=== PATIENT | male | born 1965 | race Caucasian/White ===

== ENCOUNTER 2016-09-21 15:32 | Inpatient (IN) | payer OTHER ==
[~2016-09-21] VITALS: Ht 182.9 cm; Wt 115.0 kg
[2016-09-21 16:33] LABS: BASOPHIL COUNT 0.1 K/uL (0-0.1); EOSINOPHIL (%) 0.7 % (0-5); EOSINOPHIL COUNT 0.1 K/uL (0-0.3); HEMATOCRIT 49.9 % (38.0-50.0); IMMATURE GRANULOCYTE (%) 0.3 % (0.0-0.7); IMMATURE GRANULOCYTE COUNT 0.4 K/uL; LYMPHOCYTE COUNT 1.3 K/uL (1.0-2.8); MCH 29.5 PG (29.0-34.0); MCHC 32.5 G/DL (30.0-36.0); MCV 90.9 FL (86-99); MEAN PLAT.VOLUME 9.8 uM^3 (9.0-12.4); MONOCYTE (%) 9.4 % (3-12); MONOCYTE COUNT 1.1 K/uL (0-0.8); NEUTROPHIL (%) 78.5 % (45-76); NEUTROPHIL COUNT 9.2 K/uL (1.8-6.4); PLATELET COUNT 215 K/uL (156-360); RBC DIS.WIDTH-CV 14.8 % (11.8-14.6); RBC DIS.WIDTH-SD 48.2 % (39-53); RED BLOOD COUNT 5.49 M/uL (4.00-5.50); WHITE BLOOD COUNT 11.7 K/uL (4.1-10.2)
[2016-09-21 16:41] LABS: CHLORIDE 104 mEq/L (99-109); POTASSIUM 4.2 mEq/L (3.7-5.4); SODIUM 143 mEq/L (136-147)
[2016-09-21 16:44] LABS: GLUCOSE 122 mg/dL (70-99)
[2016-09-21 16:45] LABS: ANION GAP 10 MEQ/L (2-14); TOTAL BILIRUBIN 1.2 mg/dL (0.0-1.0)
[2016-09-21 16:47] LABS: ALKALINE PHOSPHATASE 88 IU/L (3-129); GFR ESTIMATE (CALCULATED) > 59 mL/min/
[2016-09-21 16:48] LABS: UREA NITROGEN (BUN) 11 mg/dL (9-23)
[2016-09-21 20:37] LABS: BASE EXCESS -0.1 mEq/L (-3 to +3); BICARBONATE 32.9 mEq/L (22-26); CARBOXY HGB 4.4 % (0-5); METHEMOGLOBIN 1.3 % (0-1.5); PCO2 99 mm Hg (35-45); PO2 122 mm Hg (80-100)
[2016-09-21 20:39] LABS: SITE LR
[2016-09-21 20:40] LABS: COMMENTS - BLOOD GASES A+C+; DEVICE 840
[2016-09-21 20:41] LABS: FI02 100 %; MECHANICAL RATE 14 resp/min; MODE SIMV; PEEP 5 CM/H20; PRES. SUPPORT 10 CM/H2O; TIDAL VOLUME 470 ML; TOTAL RESP RATE 14 resp/min; pH 7.13 (7.35-7.45)
[2016-09-21 22:00] VITALS: BP 68/39
[2016-09-21 22:15] VITALS: BP 106/71
[2016-09-21 22:30] VITALS: BP 105/71
[2016-09-21 23:00] VITALS: BP 95/61
[2016-09-21 23:04] LABS: METH RESISTANT S AUREUS PCR NEGATIVE (NEGATIVE)
[2016-09-21 23:08] LABS: PROBE CHECK PASS; SPECIMEN PROCESSING CONTROL PASS
[2016-09-21 23:16] LABS: BASE EXCESS 4.5 mEq/L (-3 to +3); BICARBONATE 33.7 mEq/L (22-26); CARBOXY HGB 3.9 % (0-5); METHEMOGLOBIN 1.6 % (0-1.5)
[2016-09-21 23:17] LABS: COMMENTS - BLOOD GASES C+; DEVICE VENT; FI02 60 %; MECHANICAL RATE 20 resp/min; MODE AC; PCO2 70 mm Hg (35-45); PEEP 5 CM/H20; PO2 50 mm Hg (80-100); SITE RR; TIDAL VOLUME 500 ML; TOTAL RESP RATE 20 resp/min; pH 7.29 (7.35-7.45)
[2016-09-22] VITALS (25 sets, daily range): BP systolic 88–171; BP diastolic 56–110
[2016-09-22 06:38] LABS: ANION GAP 7 MEQ/L (2-14); CHLORIDE 103 MEQ/L (99-109); GFR ESTIMATE (CALCULATED) > 59 mL/min/; POTASSIUM 4.1 MEQ/L (3.7-5.4); SAMPLE HEMOLYSIS CHECK 0; SAMPLE ICTERIC CHECK 0; SAMPLE LIPEMIA CHECK 0; SODIUM 141 MEQ/L (136-147); UREA NITROGEN (BUN) 12 mg/dL (9-23)
[2016-09-22 06:40] LABS: GLUCOSE 81 mg/dL (70-99)
[2016-09-22 06:46] LABS: HEMATOCRIT 45.2 % (38.0-50.0); MCH 28.2 PG (29.0-34.0); MCHC 30.3 G/DL (30.0-36.0); MCV 93.2 FL (86-99); MEAN PLAT.VOLUME 10.3 uM^3 (9.0-12.4); PLATELET COUNT 198 K/uL (156-360); RBC DIS.WIDTH-CV 14.8 % (11.8-14.6); RBC DIS.WIDTH-SD 49.8 % (39-53); RED BLOOD COUNT 4.85 M/uL (4.00-5.50); WHITE BLOOD COUNT 9.8 K/uL (4.1-10.2)
[2016-09-22 12:57] LABS: AMPHETAMINES QUANT VALUE 0 NG/ML; BARBITUATES QUANT VALUE 0 NG/ML; BENZODIAZEPINES QUANT VALUE 0 NG/ML; BENZODIAZEPINES, URINE SCREEN Negative (200 ng/mL); MARIJUANA QUANT VALUE 0 NG/ML; PHENCYCLIDINE QUANT VALUE 0 NG/ML
[2016-09-22 18:48] LABS: BASE EXCESS 5.9 mEq/L (-3 to +3); BICARBONATE 37.7 mEq/L (22-26); CARBOXY HGB 2.8 % (0-5); METHEMOGLOBIN 1.5 % (0-1.5)
[2016-09-22 18:49] LABS: COMMENTS - BLOOD GASES C+; DEVICE HFNC; O2 FLOW 15 L/MIN; PCO2 92 mm Hg (35-45); PO2 69 mm Hg (80-100); SITE RR; TOTAL RESP RATE 16 resp/min; pH 7.22 (7.35-7.45)
[2016-09-23] VITALS (17 sets, daily range): BP systolic 110–142; BP diastolic 65–94
[2016-09-23 08:33] LABS: MAGNESIUM 1.6 mg/dl (1.3-2.7)
[2016-09-24] VITALS: BP 120/85
[2016-09-24 04:00] VITALS: BP 118/81
[2016-09-24 07:51] LABS: EOSINOPHIL (%) 0 % (0-5); HEMATOCRIT 46.3 % (38.0-50.0); IMMATURE GRANULOCYTE (%) 0.3 % (0.0-0.7); IMMATURE GRANULOCYTE COUNT 0.1 K/uL; LYMPHOCYTE COUNT 1.7 K/uL (1.0-2.8); MCH 28.4 PG (29.0-34.0); MCHC 29.6 G/DL (30.0-36.0); MCV 95.9 FL (86-99); MEAN PLAT.VOLUME 10.4 uM^3 (9.0-12.4); MONOCYTE COUNT 1.1 K/uL (0-0.8); NEUTROPHIL (%) 81.5 % (45-76); NEUTROPHIL COUNT 12.3 K/uL (1.8-6.4); PLATELET COUNT 221 K/uL (156-360); RBC DIS.WIDTH-CV 14.6 % (11.8-14.6); RBC DIS.WIDTH-SD 51.4 % (39-53); RED BLOOD COUNT 4.83 M/uL (4.00-5.50); WHITE BLOOD COUNT 15.1 K/uL (4.1-10.2)
[2016-09-24 08:00] VITALS: BP 141/86
[2016-09-24 08:13] LABS: ANION GAP 5 MEQ/L (2-14); CHLORIDE 96 MEQ/L (99-109); GFR ESTIMATE (CALCULATED) > 59 mL/min/; GLUCOSE 98 mg/dL (70-99); MAGNESIUM 1.9 mg/dl (1.3-2.7); POTASSIUM 5.6 MEQ/L (3.7-5.4); SAMPLE HEMOLYSIS CHECK 0; SAMPLE ICTERIC CHECK 0; SAMPLE LIPEMIA CHECK 0; SODIUM 139 MEQ/L (136-147); UREA NITROGEN (BUN) 18 mg/dL (9-23)
[2016-09-24 12:00] VITALS: BP 122/77
[2016-09-24 16:00] VITALS: BP 128/93
[2016-09-24 22:00] VITALS: BP 138/66
[2016-09-25] VITALS (9 sets, daily range): BP systolic 137–167; BP diastolic 78–95
[2016-09-25 06:35] LABS: EOSINOPHIL (%) 0 % (0-5); HEMATOCRIT 45.2 % (38.0-50.0); IMMATURE GRANULOCYTE (%) 0.2 % (0.0-0.7); LYMPHOCYTE COUNT 0.3 K/uL (1.0-2.8); MCH 29.7 PG (29.0-34.0); MCHC 30.3 G/DL (30.0-36.0); MEAN PLAT.VOLUME 10.3 uM^3 (9.0-12.4); MONOCYTE (%) 3.1 % (3-12); MONOCYTE COUNT 0.3 K/uL (0-0.8); NEUTROPHIL (%) 93.6 % (45-76); NEUTROPHIL COUNT 8.7 K/uL (1.8-6.4); PLATELET COUNT 220 K/uL (156-360); RBC DIS.WIDTH-CV 14.7 % (11.8-14.6); RBC DIS.WIDTH-SD 52.7 % (39-53); RED BLOOD COUNT 4.61 M/uL (4.00-5.50)
[2016-09-25 06:36] LABS: WHITE BLOOD COUNT 9.3 K/uL (4.1-10.2)
[2016-09-25 06:53] LABS: ANION GAP ND MEQ/L (2-14); CHLORIDE 95 MEQ/L (99-109); GFR ESTIMATE (CALCULATED) > 59 mL/min/; MAGNESIUM 1.8 mg/dl (1.3-2.7); POTASSIUM 4.9 MEQ/L (3.7-5.4); SAMPLE HEMOLYSIS CHECK 0; SAMPLE ICTERIC CHECK 0; SAMPLE LIPEMIA CHECK 0; SODIUM 141 MEQ/L (136-147); UREA NITROGEN (BUN) 16 mg/dL (9-23)
[2016-09-25 06:54] LABS: CARBON DIOXIDE (BICARBONATE) > 40.0 MEQ/L (20-31); GLUCOSE 160 mg/dL (70-99)
[2016-09-26] VITALS: BP 140/104
[2016-09-26 04:00] VITALS: BP 136/92
[2016-09-26 06:10] LABS: EOSINOPHIL (%) 0 % (0-5); HEMATOCRIT 46.4 % (38.0-50.0); IMMATURE GRANULOCYTE (%) 0.2 % (0.0-0.7); LYMPHOCYTE COUNT 0.4 K/uL (1.0-2.8); MCH 28.1 PG (29.0-34.0); MCHC 29.1 G/DL (30.0-36.0); MCV 96.7 FL (86-99); MEAN PLAT.VOLUME 10.1 uM^3 (9.0-12.4); MONOCYTE COUNT 0.4 K/uL (0-0.8); NEUTROPHIL (%) 91.8 % (45-76); NEUTROPHIL COUNT 8.4 K/uL (1.8-6.4); PLATELET COUNT 245 K/uL (156-360); RBC DIS.WIDTH-CV 14.5 % (11.8-14.6); RBC DIS.WIDTH-SD 51.3 % (39-53); WHITE BLOOD COUNT 9.2 K/uL (4.1-10.2)
[2016-09-26 07:09] LABS: ANION GAP ND MEQ/L (2-14); CHLORIDE 94 MEQ/L (99-109); GFR ESTIMATE (CALCULATED) > 59 mL/min/; GLUCOSE 161 mg/dL (70-99); MAGNESIUM 1.9 mg/dl (1.3-2.7); POTASSIUM 4.7 MEQ/L (3.7-5.4); SAMPLE HEMOLYSIS CHECK 0; SAMPLE ICTERIC CHECK 0; SAMPLE LIPEMIA CHECK 0; SODIUM 142 MEQ/L (136-147); UREA NITROGEN (BUN) 18 mg/dL (9-23)
[2016-09-26 07:13] LABS: CARBON DIOXIDE (BICARBONATE) > 40.0 MEQ/L (20-31)
[2016-09-26 08:00] VITALS: BP 157/104
[2016-09-26 12:00] VITALS: BP 163/102
[2016-09-26 16:00] VITALS: BP 142/103
[2016-09-26 20:00] VITALS: BP 148/86
[2016-09-27] VITALS (7 sets, daily range): BP systolic 128–181; BP diastolic 92–115
[2016-09-27 06:14] LABS: EOSINOPHIL (%) 0 % (0-5); HEMATOCRIT 45.4 % (38.0-50.0); IMMATURE GRANULOCYTE (%) 0.1 % (0.0-0.7); LYMPHOCYTE COUNT 0.4 K/uL (1.0-2.8); MCH 28.7 PG (29.0-34.0); MCHC 30.2 G/DL (30.0-36.0); MEAN PLAT.VOLUME 10.4 uM^3 (9.0-12.4); MONOCYTE (%) 5.3 % (3-12); MONOCYTE COUNT 0.4 K/uL (0-0.8); NEUTROPHIL (%) 89.7 % (45-76); NEUTROPHIL COUNT 7.1 K/uL (1.8-6.4); PLATELET COUNT 271 K/uL (156-360); RBC DIS.WIDTH-CV 14.4 % (11.8-14.6); RBC DIS.WIDTH-SD 50.1 % (39-53); RED BLOOD COUNT 4.78 M/uL (4.00-5.50)
[2016-09-27 06:47] LABS: ANION GAP ND MEQ/L (2-14); CHLORIDE 93 MEQ/L (99-109); GFR ESTIMATE (CALCULATED) > 59 mL/min/; GLUCOSE 117 mg/dL (70-99); MAGNESIUM 1.9 mg/dl (1.3-2.7); POTASSIUM 4.4 MEQ/L (3.7-5.4); SAMPLE HEMOLYSIS CHECK 0; SAMPLE ICTERIC CHECK 0; SAMPLE LIPEMIA CHECK 0; SODIUM 142 MEQ/L (136-147); UREA NITROGEN (BUN) 17 mg/dL (9-23)
[2016-09-27 06:48] LABS: CARBON DIOXIDE (BICARBONATE) > 40.0 MEQ/L (20-31)
[2016-09-28 04:10] VITALS: BP 148/94
[2016-09-28 07:20] VITALS: BP 138/88
[2016-09-28 07:35] LABS: ANION GAP ND MEQ/L (2-14); CHLORIDE 95 MEQ/L (99-109); GFR ESTIMATE (CALCULATED) > 59 mL/min/; GLUCOSE 92 mg/dL (70-99); POTASSIUM 4.8 MEQ/L (3.7-5.4); SAMPLE HEMOLYSIS CHECK 0; SAMPLE ICTERIC CHECK 0; SAMPLE LIPEMIA CHECK 0; SODIUM 143 MEQ/L (136-147); UREA NITROGEN (BUN) 18 mg/dL (9-23)
[2016-09-28 07:36] LABS: CARBON DIOXIDE (BICARBONATE) > 40.0 MEQ/L (20-31)
[2016-09-28 07:56] LABS: EOSINOPHIL (%) 0.1 % (0-5); IMMATURE GRANULOCYTE (%) 0.3 % (0.0-0.7); LYMPHOCYTE COUNT 1.7 K/uL (1.0-2.8); MCH 28.7 PG (29.0-34.0); MCHC 30.4 G/DL (30.0-36.0); MCV 94.3 FL (86-99); MEAN PLAT.VOLUME 10.1 uM^3 (9.0-12.4); MONOCYTE (%) 4.7 % (3-12); MONOCYTE COUNT 0.6 K/uL (0-0.8); NEUTROPHIL (%) 80.4 % (45-76); NEUTROPHIL COUNT 9.3 K/uL (1.8-6.4); PLATELET COUNT 288 K/uL (156-360); RBC DIS.WIDTH-CV 14.6 % (11.8-14.6); RED BLOOD COUNT 4.88 M/uL (4.00-5.50)
[2016-09-28 07:59] LABS: WHITE BLOOD COUNT 11.6 K/uL (4.1-10.2)
[2016-09-28 10:40] LABS: BASE EXCESS 16.2 mEq/L (-3 to +3); BICARBONATE 45.2 mEq/L (22-26); CARBOXY HGB 2.9 % (0-5); METHEMOGLOBIN 1.5 % (0-1.5); PCO2 73 mm Hg (35-45); PO2 74 mm Hg (80-100); SITE LR
[2016-09-28 10:41] LABS: COMMENTS - BLOOD GASES A+C+; DEVICE NC; O2 FLOW 3 L/MIN; TOTAL RESP RATE 16 resp/min
[2016-09-28 12:49] VITALS: BP 159/88
[2016-09-28 15:58] VITALS: BP 136/77
[2016-09-28 19:27] VITALS: BP 137/89
[2016-09-28 23:34] VITALS: BP 150/87
[2016-09-29 03:46] VITALS: BP 124/77
[2016-09-29 06:22] LABS: MCH 29.4 PG (29.0-34.0); MCHC 30.9 G/DL (30.0-36.0); MCV 95.3 FL (86-99); MEAN PLAT.VOLUME 10.2 uM^3 (9.0-12.4); PLATELET COUNT 280 K/uL (156-360); RBC DIS.WIDTH-CV 14.8 % (11.8-14.6); RED BLOOD COUNT 4.93 M/uL (4.00-5.50)
[2016-09-29 06:32] LABS: EOSINOPHIL (%) 0.5 % (0-5); EOSINOPHIL COUNT 0.1 K/uL (0-0.3); IMMATURE GRANULOCYTE (%) 0.5 % (0.0-0.7); IMMATURE GRANULOCYTE COUNT 0.1 K/uL; LYMPHOCYTE COUNT 1.9 K/uL (1.0-2.8); MONOCYTE (%) 15.9 % (3-12); MONOCYTE COUNT 1.8 K/uL (0-0.8); NEUTROPHIL COUNT 7.3 K/uL (1.8-6.4)
[2016-09-29 06:47] LABS: ANION GAP ND MEQ/L (2-14); CARBON DIOXIDE (BICARBONATE) > 40.0 MEQ/L (20-31); CHLORIDE 96 MEQ/L (99-109); GFR ESTIMATE (CALCULATED) > 59 mL/min/; GLUCOSE 73 mg/dL (70-99); POTASSIUM 4.3 MEQ/L (3.7-5.4); SAMPLE HEMOLYSIS CHECK 0; SAMPLE ICTERIC CHECK 0; SAMPLE LIPEMIA CHECK 0; SODIUM 145 MEQ/L (136-147); UREA NITROGEN (BUN) 19 mg/dL (9-23)
[2016-09-29 08:43] VITALS: BP 153/99
[2016-09-29 12:03] VITALS: BP 113/79
[2016-09-29 16:37] VITALS: BP 127/71
[2016-09-29 19:39] VITALS: BP 155/93
[2016-09-29 23:35] VITALS: BP 160/93
[2016-09-30 03:30] VITALS: BP 142/79
[2016-09-30 05:28] LABS: EOSINOPHIL COUNT 0.1 K/uL (0-0.3); HEMATOCRIT 48.1 % (38.0-50.0); IMMATURE GRANULOCYTE (%) 0.4 % (0.0-0.7); IMMATURE GRANULOCYTE COUNT 0.1 K/uL; MCH 28.3 PG (29.0-34.0); MCHC 29.7 G/DL (30.0-36.0); MCV 95.1 FL (86-99); MONOCYTE (%) 13.9 % (3-12); MONOCYTE COUNT 1.6 K/uL (0-0.8); NEUTROPHIL COUNT 7.7 K/uL (1.8-6.4); PLATELET COUNT 301 K/uL (156-360); RBC DIS.WIDTH-CV 14.5 % (11.8-14.6); RBC DIS.WIDTH-SD 50.3 % (39-53); RED BLOOD COUNT 5.06 M/uL (4.00-5.50); WHITE BLOOD COUNT 11.5 K/uL (4.1-10.2)
[2016-09-30 06:27] LABS: ANION GAP ND MEQ/L (2-14); CHLORIDE 98 MEQ/L (99-109); GFR ESTIMATE (CALCULATED) > 59 mL/min/; GLUCOSE 73 mg/dL (70-99); POTASSIUM 3.6 MEQ/L (3.7-5.4); SAMPLE HEMOLYSIS CHECK 0; SAMPLE ICTERIC CHECK 0; SAMPLE LIPEMIA CHECK 0; SODIUM 145 MEQ/L (136-147); UREA NITROGEN (BUN) 19 mg/dL (9-23)
[2016-09-30 06:36] LABS: CARBON DIOXIDE (BICARBONATE) > 40.0 MEQ/L (20-31)
[2016-09-30 08:15] VITALS: BP 138/81
[2016-09-30 11:58] VITALS: BP 126/81
[2016-09-30 16:34] VITALS: BP 133/76
[2016-09-30 19:46] VITALS: BP 138/78
[2016-10-01 00:42] VITALS: BP 140/86
[2016-10-01 05:06] LABS: HEMATOCRIT 46.2 % (38.0-50.0); MCH 29.7 PG (29.0-34.0); MCHC 31.6 G/DL (30.0-36.0); MCV 94.1 FL (86-99); MEAN PLAT.VOLUME 9.2 uM^3 (9.0-12.4); PLATELET COUNT 282 K/uL (156-360); RBC DIS.WIDTH-CV 14.9 % (11.8-14.6); RBC DIS.WIDTH-SD 49.2 % (39-53); RED BLOOD COUNT 4.91 M/uL (4.00-5.50); WHITE BLOOD COUNT 13.7 K/uL (4.1-10.2)
[2016-10-01 05:10] LABS: EOSINOPHIL (%) 0.9 % (0-5); EOSINOPHIL COUNT 0.1 K/uL (0-0.3); IMMATURE GRANULOCYTE (%) 0.4 % (0.0-0.7); IMMATURE GRANULOCYTE COUNT 0.6 K/uL; LYMPHOCYTE COUNT 2.2 K/uL (1.0-2.8); MONOCYTE (%) 9.2 % (3-12); MONOCYTE COUNT 1.3 K/uL (0-0.8); NEUTROPHIL (%) 73.3 % (45-76)
[2016-10-01 05:16] VITALS: BP 113/69
[2016-10-01 05:17] LABS: CHLORIDE 99 mEq/L (99-109); SODIUM 144 mEq/L (136-147)
[2016-10-01 05:21] LABS: ANION GAP 7 MEQ/L (2-14)
[2016-10-01 05:23] LABS: GFR ESTIMATE (CALCULATED) > 59 mL/min/
[2016-10-01 05:24] LABS: UREA NITROGEN (BUN) 16 mg/dL (9-23)
[2016-10-01 05:29] LABS: GLUCOSE 96 mg/dL (70-99); POTASSIUM 4.8 mEq/L (3.7-5.4)
[2016-10-01 08:09] VITALS: BP 137/85
[2016-10-01] MEDS ORDERED: NICOTINE PATCH1 EAC2 TD (15:08)
[2016-10-01] MEDS ORDERED: SPIRIVA RESPIMAT4 GM IH (15:08)
[2016-10-01] MEDS ORDERED: LISINOPRIL20 MG PO (15:08)
[2016-10-01] MEDS ORDERED: PREDNISONE10 MG PO (15:08)
[2016-10-01] MEDS ORDERED: LOVENOX30 MG/0.3 SC (15:08)
[2016-10-01] MEDS ORDERED: ADVAIR HFA120 INHALA IH (15:08)
[2016-10-01] MEDS ORDERED: PROAIR HFA8.5 GM IH (15:12)
[2016-10-01] MEDS ORDERED: OXYCODONE-APAP1 EACH PO (16:19)
[2016-10-01 16:35] VITALS: BP 117/70
[2016-10-01 23:34] VITALS: BP 113/70
[2016-10-02 08:13] VITALS: BP 111/67
== END 2016-10-02 11:49 | disposition home or self-care (01) | DRG 982 ==
LOC: EME 15:32 → EDBD 15:32 → EME 17:45 → SDC 17:45 → 2SOUTH 20:10 → 4WEST 20:10 → 4EAST 09-27 22:37 → 3EAST 09-28 12:39
PROVIDERS: Emergency Medicine; Internal Medicine; Internal Medicine Critical Care Medicine; Internal Medicine Nephrology; Internal Medicine Pulmonary Disease; Nurse Practitioner Adult Health; Obstetrics & Gynecology Gynecologic Oncology
DX: J96.01 Acute respiratory failure with hypoxia (principal); J96.02 Acute respiratory failure with hypercapnia; E87.2 Acidosis; J98.01 Acute bronchospasm; J44.9 Chronic obstructive pulmonary disease, unspecified; G47.33 Obstructive sleep apnea (adult) (pediatric); S82.842B Displaced bimalleolar fracture of left lower leg, initial encounter for open fracture type I or II; W11.XXXA Fall on and from ladder, initial encounter; E66.9 Obesity, unspecified; F17.200 Nicotine dependence, unspecified, uncomplicated; I10 Essential (primary) hypertension; I27.2 Other secondary pulmonary hypertension; Z68.34 Body mass index [BMI] 34.0-34.9, adult
CPT/HCPCS: 36600; 71020; 71275; 73600; 73610; 76000; 80048; 80053; 80306 90; 82803; 83735; 84100; 85025; 85027; 86850; 86900; 86901; 87070; 87205; 87641; 93005; 93306; 94002; 94003; 94010; 94640; 94640 76; 94660; 94760; 94799; 97530 GO; 99202; 99281; 99285; C1713; J0131; J0330; J0456; J0690; J0696; J1100; J1170; J1650; J1940; J2270; J2405; J2704; J2920; J2930; J3010; J7030; J7050; J7120; J7512; S0028